=== PATIENT | female | born 1930 | race Caucasian/White ===

== ENCOUNTER 2017-03-14 20:17 | Emergency (ER) | payer MEDICARE, OTHER ==
--- NOTE | ~2017-03-14 | ER ---
PATIENT'S NAME: MICKY BLOUNT [facility] AGE: 86 Y [address] ROOM: [place] [address] LOCATION: [facility] ADMIT DATE: 03/14/2017 ER/Outpatient Report DISCHARGE DATE: 03/14/2017 FAMILY PHYSICIAN: Ace Mcneil MD ATTENDING PHYSICIAN: Lee Peters TIME OF ARRIVAL: 2017 hours. TIME OF EVALUATION: 4 hours. CHIEF COMPLAINT: Fall, hit head. HISTORY OF PRESENT ILLNESS: The patient is an 86-year-old female who presents to the emergency department today with a fall after hitting her head. She reports it occurred about 1 hour prior to arrival. The patient reports that she was trying to undo her bra when she lost her balance, fell backwards, and hit the corner of the recliner on the left-side of the back of her head. She does report she has had some headaches over the past couple of weeks. Saw Dr. Mcneil. She reports moderate headache, 7/10 in severity, right now. Denies any loss of consciousness. No fevers or chills. No nausea or vomiting. No diarrhea or constipation. 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 PAST SURGICAL HISTORY: Hysterectomy. SOCIAL HISTORY: The patient lives in assisted living. Ambulates with a walker. Denies any alcohol, illicit drug use, or tobacco abuse. FAMILY HISTORY: No coronary artery disease or sudden cardiac . ALLERGIES: ADHESIVE TAPE, LATEX, AND SULFA. PATIENT'S NAME: MICKY BLOUNT [facility] AGE: 86 Y [address] ROOM: [place] [address] LOCATION: [facility] ADMIT DATE: 03/14/2017 ER/Outpatient Report DISCHARGE DATE: 03/14/2017 FAMILY PHYSICIAN: Ace Mcneil MD ATTENDING PHYSICIAN: Lee Peters MEDICATIONS: Please see list. REVIEW OF SYSTEMS: All systems are reviewed by myself are negative with the exception of those discussed in HPI and past medical history. PHYSICAL EXAMINATION: VITAL SIGNS: Weight 72.8 kg. Blood pressure 180/80, pulse 84, respiratory rate 16, temperature 97.7, and oxygen saturation 94% on room air. GENERAL: The patient is an 86-year-old female, who appears stated age, in no acute distress at this time. HEENT: Normocephalic, does have evidence of trauma to the posterior aspect with a hematoma noted to the left occipital region. Pupils are equal, round, and reactive to light and accommodation. Extraocular motions are intact. Nares are patent bilaterally. TMs are clear. No hemotympanum. Oropharynx is clear. There is no Lou sign. No raccoon eyes. NECK: Supple. There is no nuchal rigidity. No midline tenderness to palpation. No step-offs or deformities. CARDIOVASCULAR: Regular rate and rhythm. No murmurs, rubs, or gallops. LUNGS: Clear to auscultation bilaterally. No wheezes, rales, or rhonchi. ABDOMEN: Soft, nontender, and nondistended. No rebound, rigidity, or guarding. MUSCULOSKELETAL: The patient moves all 4 extremities. A 5/5 muscle strength. No bony tenderness to palpation noted. NEUROLOGICAL: GCS is 15. Alert and oriented x4. Cranial nerves 2 through 12 are intact. Normal [id number]. Normal rapid hand movement. 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 Downward going toes. No clonus. A 2/4 reflexes. SKIN: Warm, dry, lesions are noted as above. LABS AND X-RAYS: A CT scan of the brain is obtained. There are no acute findings. CT scan of the C-spine is obtained shows no acute findings. IMPRESSION: 1. Closed head injury. 2. Mechanical fall. 3. Initial visit. EMERGENCY DEPARTMENT COURSE: The patient brought back to the examination room. Seen and evaluated by myself. Imaging is obtained as described above. The patient does not wish to have any pain medicine at this time. I have discussed results with the patient. She is alert, interactive, she does ambulate with a walker here in the emergency department. I have discussed that I would like her to follow up PATIENT'S NAME: MICKY BLOUNT [facility] AGE: 86 Y [address] ROOM: [place] [address] LOCATION: [facility] ADMIT DATE: 03/14/2017 ER/Outpatient Report DISCHARGE DATE: 03/14/2017 FAMILY PHYSICIAN: Ace Mcneil MD ATTENDING PHYSICIAN: Lee Peters with Dr. Mcneil in 2 days for reevaluation. I have discussed [id number] instructions including worsening symptoms or any other concerns to return to the emergency department as soon as possible. The patient is agreeable. She is without further questions at this time. DISPOSITION: The patient is discharged home in good condition. DO HNANAH FRIEDMAN/modl /[id number] d: 03/15/17 2347 t: 03/16/17220, OUTPATIENT REPORT
== END 2017-03-14 22:18 | disposition disaster alternative care site (69) ==
LOC: GACC 20:17
DX: S09.90XA Unspecified injury of head, initial encounter (principal); I12.0 Hypertensive chronic kidney disease with stage 5 chronic kidney disease or end stage renal disease; N18.6 End stage renal disease; Z99.2 Dependence on renal dialysis; F32.9 Major depressive disorder, single episode, unspecified; Z90.710 Acquired absence of both cervix and uterus; Z88.2 Allergy status to sulfonamides; Z88.8 Allergy status to other drugs, medicaments and biological substances; W22.8XXA Striking against or struck by other objects, initial encounter

== ENCOUNTER → 2017-03-14 | Outpatient (CLI) | payer MEDICARE, OTHER ==
[~2017-03-14] MED LIST: BENADRYL 2% CREAM2 % TOP; CO Q-10100 MG PO; COLACE100 MG PO; COZAAR50 MG PO; CRESTOR10 MG PO; DESYREL100 MG PO; DULCOLAX10 MG R; EFFEXOR75 MG PO; ELIQUIS2.5 MG PO; EMLA5 GM TOP; FLONASE ALLER15.8 ML NOSE; HYDROCORTISONE120 ML TOP; IMODIUM2 MG PO; LOPRESSOR100 MG PO; MAG-OX-400(241400 MG PO; MELATIN3 MG PO; MILK OF MA400 MG/5 M PO; MUCINEX600 MG PO; NORVASC10 MG PO; NORVASC5 MG PO; PEPTO BISMAL PO; PERCOCET 5-3251 EACH PO; PROTONIX40 MG PO; RENVELA800 MG PO; SYSTANE ULTRA1 EACH OPHTH; TESSALON PERLE100 MG PO; THERAGRAN-M1 TAB PO; TIMOPTIC XE 0.5%5 ML OPHTH; TRIAMCINOLONE454 GM TOP; TYLENOL325 MG PO; VITAMIN C500 M1 PO; XANAX0.25 MG PO; ZYRTEC10 MG PO; [UNRECOGNIZED DRUG - REMARK] SUB-Q
== END | disposition disaster alternative care site (69) ==
LOC: GAMB 22:13
DX: R53.1 Weakness (principal); Z91.81 History of falling
CPT/HCPCS: A0425; A0428

== ENCOUNTER 2017-04-17 22:05 | Emergency (ER) | payer MEDICARE, OTHER ==
--- NOTE | ~2017-04-17 | ER ---
PATIENT'S NAME: MICKY BLOUNT [facility] AGE: 86 Y [address] ROOM: [place] [address] LOCATION: [facility] ADMIT DATE: 04/17/2017 ER/Outpatient Report DISCHARGE DATE: 04/17/2017 FAMILY PHYSICIAN: Ace Mcneil MD ATTENDING PHYSICIAN: Lita Aguayo Time of Arrival: 2205 hours. Time Seen: 2230 hours. HISTORY OF PRESENT ILLNESS: This is an 86-year-old female. She was previously reasonably healthy. She is in by ambulance after a fall. She states that she was sitting on the side of her bed getting ready to go to bed and the room was dark, she sat too close to the edge of the bed and slipped off the bed striking the back of her head on the edge of the bed. There is no loss of consciousness. She complains of pain in the back of her head. PAST MEDICAL HISTORY: Significant for chronic renal failure, on hemodialysis; gastroesophageal reflux disease; and she is currently anticoagulated. CURRENT MEDICATIONS: Please see list. REVIEW OF SYSTEMS: Otherwise negative. SOCIAL HISTORY: She lives in assisted living. PHYSICAL EXAMINATION: GENERAL: Alert, pleasant, cooperative female, in no acute distress. VITAL SIGNS: Stable. SKIN: Warm and dry. Color is normal. HEENT: Head, ears, eyes, nose, and throat revealed an occipital hematoma with no bony crepitance. Ear nose and throat were clear. NECK: Nontender. CHEST: There is no evidence of chest trauma. Breath sounds were equal. ABDOMEN: Soft. EXTREMITIES: Normal. NEUROLOGIC: Normal. LABORATORY DATA AND X-RAYS: CT brain scan was obtained and was negative. PATIENT'S NAME: MICKY BLOUNT [facility] AGE: 86 Y [address] ROOM: [place], [place] [address] LOCATION: [facility] ADMIT DATE: 04/17/2017 ER/Outpatient Report DISCHARGE DATE: 04/17/2017 FAMILY PHYSICIAN: Ace Mcneil MD ATTENDING PHYSICIAN: Lita Aguayo ASSESSMENT: Fall with scalp contusion. PLAN: Follow up with her regular doctor as previously arranged. LITA AGUAYO MD JDB/modl /[id number] d: 04/18/17446 t: 04/19/17443, OUTPATIENT REPORT
== END 2017-04-17 23:51 | disposition disaster alternative care site (69) ==
LOC: GACC 22:05
DX: S00.03XA Contusion of scalp, initial encounter (principal); N18.6 End stage renal disease; K21.9 Gastro-esophageal reflux disease without esophagitis; Z99.2 Dependence on renal dialysis; Z88.2 Allergy status to sulfonamides; Z79.899 Other long term (current) drug therapy; W01.198A Fall on same level from slipping, tripping and stumbling with subsequent striking against other object, initial encounter

== ENCOUNTER → 2017-04-17 | Outpatient (CLI) | payer MEDICARE, OTHER | END | disposition disaster alternative care site (69) | LOC: GAMB 21:59 | DX: S09.90XA Unspecified injury of head, initial encounter (principal); S00.93XA Contusion of unspecified part of head, initial encounter; F32.9 Major depressive disorder, single episode, unspecified; I12.9 Hypertensive chronic kidney disease with stage 1 through stage 4 chronic kidney disease, or unspecified chronic kidney disease; N18.1 Chronic kidney disease, stage 1; J45.909 Unspecified asthma, uncomplicated; R29.6 Repeated falls; Z79.899 Other long term (current) drug therapy; Z88.2 Allergy status to sulfonamides; X58.XXXD Exposure to other specified factors, subsequent encounter | CPT/HCPCS: A0425; A0427 ==

== ENCOUNTER → 2017-05-17 | Outpatient (CLI) | payer MEDICARE, OTHER | END | disposition disaster alternative care site (69) | LOC: GRAD 11:00 | DX: E88.89 Other specified metabolic disorders (principal); G31.9 Degenerative disease of nervous system, unspecified; I67.82 Cerebral ischemia; W19.XXXA Unspecified fall, initial encounter ==